=== PATIENT | male | born 1955 | race Caucasian/White ===

== ENCOUNTER 2024-06-02 11:36 | Day surgery (SDC) | payer MEDICARE ==
[2024-05-30 10:15] VITALS: BMI 25.1
[2024-06-02] MEDS ORDERED: Acetaminophen 500 MG TAB ONE (11:52)
[2024-06-02] MEDS ORDERED: Ketorolac Tromethamine 30 MG (1 mL) VIAL ONE (11:52)
[2024-06-02] MEDS ORDERED: Tamsulosin HCl 0.4 MG CAP PO SCH (12:45)
[2024-06-02] MEDS ORDERED: SUGAMMADEX SODIUM 200 MG/2 ML VIAL ONE ×2 (13:08→15:51)
[2024-06-02] MEDS ORDERED: Dexamethasone 4 mg/ml Vial ONE (13:08)
[2024-06-02] MEDS ORDERED: Ondansetron PF 4 MG/2 ML Vial ONE (13:08)
[2024-06-02] MEDS ORDERED: PROPOFOL 40 ML ONE (13:08)
[2024-06-02] MEDS ORDERED: fentaNYL 50 mcg/mL 1 mL Vial ONE (13:08)
[2024-06-02] MEDS ORDERED: Rocuronium Bromide 10 MG/ML (10ML VIAL) ONE (13:08)
[2024-06-02] MEDS ORDERED: Lidocaine 1% PF 5 ML VIAL ONE (13:08)
[2024-06-02] MEDS ORDERED: CEFAZOLIN 2 GM VIAL ONE (13:36)
[2024-06-02] MEDS ORDERED: Bupivacaine/Epinephrine 0.25% 30 ML VIAL ONE (13:37)
[2024-06-02] MEDS ORDERED: Lidocaine 2% PF 5 ML VIAL ONE (13:39)
[2024-06-02] MEDS ORDERED: ePHEDrine Sulfate 50 MG/10 ML VIAL ONE (14:10)
[2024-06-02] MEDS ORDERED: PHENYLEPHRINE-NS 100 MCG/ML 10 ML SYRINGE ONE (14:15)
[2024-06-02] MEDS ORDERED: Glycopyrrolate 0.2 MG/ML 5 ML SYRINGE ONE (14:31)
[2024-06-02] MEDS ORDERED: HYDROcodone/Acetaminophen 5/325 mg Tablet ONE (18:11)
== END 2024-06-02 18:30 | disposition home or self-care (01) ==
LOC: CSHSDC 11:36
PROVIDERS: ATTEND Specialist
PROC: 0YUA4JZ Supplement Bilateral Inguinal Region with Synthetic Substitute, Percutaneous Endoscopic Approach (ICD-10-PCS; principal; 2024-06-02)
DX: K40.20 Bilateral inguinal hernia, without obstruction or gangrene, not specified as recurrent (principal); J45.909 Unspecified asthma, uncomplicated; Z98.890 Other specified postprocedural states; Z79.899 Other long term (current) drug therapy; Z96.643 Presence of artificial hip joint, bilateral; Z79.51 Long term (current) use of inhaled steroids
CPT/HCPCS: 49650; 71045; C1781 ×2; J1100; J1885; J2405; J2704; J3010; S2900

== ENCOUNTER 2024-06-13 11:20 | Inpatient (IN) | payer MEDICARE ==
[~2024-06-13 11:20] MED LIST: Iopamidol 300 61% 100 ML VIAL FS ONE
[2024-06-13] MEDS ORDERED: Ipratropium/Albuterol 3 ML NEB NEB PRN (12:48)
[2024-06-13] MEDS ORDERED: Dextrose 5% in Water 1,000 ML IV PRN (12:48)
[2024-06-13] MEDS ORDERED: Dextrose 50% Abboject 50 ML SYRINGE SLOW IVP PRN (12:48)
[2024-06-13] MEDS ORDERED: Morphine 2 MG/ML VIAL SLOW IVP PRN (12:48)
[2024-06-13] MEDS ORDERED: Acetaminophen 325 MG TAB PO PRN (12:48)
[2024-06-13] MEDS ORDERED: Promethazine HCl 25 MG/ML VIAL IM PRN (12:48)
[2024-06-13] MEDS ORDERED: hydrALAZINE 20 MG/ML VIAL SLOW IVP PRN (12:48)
[2024-06-13] MEDS ORDERED: Ondansetron PF 4 MG/2 ML Vial IVP PRN (12:48)
[2024-06-13] MEDS ORDERED: Glucagon 1 MG/ML KIT IM PRN (12:48)
[2024-06-13] MEDS ORDERED: Ventolin HFA Inhaler 60 PUFF INHALER INH PRN (13:14)
[2024-06-13] MEDS ORDERED: HYDROcodone/Acetaminophen 7.5/325 mg Tablet PO PRN (13:14)
[2024-06-13 14:12] LABS: Prothrombin Time 11.3 sec (9.5-12.1)
[2024-06-13 16:27] VITALS: BMI 25.1
[2024-06-13] MEDS: Lactated Ringer's 1,000 ML IV SCH (18:05)
[2024-06-13] MEDS: Ketorolac Tromethamine 30 MG (1 mL) VIAL IVP SCH (18:05)
[2024-06-13] MEDS: Piperacillin/Tazobactam 3.375 GM in Sodium Chloride 0.9% 100 ML IVPB SCH ×2 (18:07→22:15)
[2024-06-13] MEDS: Amlodipine 5 MG TAB PO SCH (20:23)
[2024-06-13] MEDS: Atorvastatin Calcium 10 MG TAB PO SCH (20:23)
[2024-06-13] MEDS: Famotidine 20 MG TAB PO SCH (20:24)
[2024-06-14 04:23] LABS: #Basophils 0.03 10x3/uL (0.0-0.2); #Eosinophils 0.19 10x3/uL (0.0-0.5); #Monocytes 0.85 10x3/uL (0.0-1.1); #Neutrophils 7.34 10x3/uL (1.5-8.4); %Basophils 0.3 % (0.0-2.0); %Eosinophils 1.9 % (0.0-6.0); %Monocytes 8.3 % (0.0-10.0); %Neutrophils 71.9 % (40.0-75.0); Hematocrit 38.5 % (38.8-50.0); Hemoglobin 12.6 g/dL (13.5-17.5); Mean Corpuscular HGB CONC 32.7 g/dL (32.0-36.0); Mean Corpuscular Hemoglobin 31.8 pg (27.0-33.0); Mean Corpuscular Volume 97.2 fL (81.2-95.1); Mean Platelet Volume 10.1 fL (7.4-10.4); Platelet Count 259 10x3/uL (150-450); RBC Distribution Width 12.2 % (11.5-14.5); Red Blood Cell (RBC) Count 3.96 10x6/uL (4.32-5.72); White Blood Cell (WBC) Count 10.21 10x3/uL (3.5-10.5)
[2024-06-14 04:41] LABS: Anion Gap 12 mmol/L (10-20); BUN (Urea Nitrogen) 14 mg/dL (8.4-25.7); Calc. Creatinine Clearance 83 mL/min (70-130); Calcium 8.7 mg/dL (7.8-10.44); Carbon Dioxide 25 mmol/L (23-31); Chloride 103 mmol/L (98-107); Estimated GFR 89; Glucose 94 mg/dL (80-115); Potassium 4.1 mmol/L (3.5-5.1); Sodium 136 mmol/L (136-145)
[2024-06-14] MEDS: Bisoprolol Fumarate 5 MG TAB PO SCH (09:34)
[2024-06-14] MEDS: Lactated Ringer's 1,000 ML IV SCH (19:30)
[2024-06-14] MEDS: Zolpidem Tartrate 5 MG TAB PO SCH (21:08)
[2024-06-15 12:15] VITALS: BP 170/73; TEMP 97.8
== END 2024-06-15 13:51 | disposition home or self-care (01) | DRG 373 ==
LOC: CSHCT 11:20 → CSHTELE 16:07
PROVIDERS: ADMIT Specialist; ATTEND Specialist
PROC: 0W9J30Z Drainage of Pelvic Cavity with Drainage Device, Percutaneous Approach (ICD-10-PCS; principal; 2024-06-13)
DX: K35.33 Acute appendicitis with perforation, localized peritonitis, and gangrene, with abscess (principal)
CPT/HCPCS: 36415; 49406; 74177; 80048; 85025; 85610; 87070; 87077; 87186; 87205; 94760; J1885; J2543; J7120; Q9967